=== PATIENT | female | born 1990 | race Caucasian/White ===

== ENCOUNTER 2022-02-09 06:12 | Observation (INO) | payer OTHER ==
[~2022-02-09] VITALS: Ht 175.3 cm; Wt 142.9 kg
[2022-02-09] MEDS ORDERED: PREN-96 PO (08:03)
== END 2022-02-09 10:35 | disposition home or self-care (01) ==
LOC: LDRP 06:12
PROVIDERS: ADMIT Obstetrics & Gynecology; ATTEND Obstetrics & Gynecology
DX: O36.8130 Decreased fetal movements, third trimester, not applicable or unspecified (principal); O26.893 Other specified pregnancy related conditions, third trimester; R10.9 Unspecified abdominal pain; Z3A.33 33 weeks gestation of pregnancy; Z87.891 Personal history of nicotine dependence; Z91.040 Latex allergy status
CPT/HCPCS: 59025; 76818; 81002; 94762; G0378

== ENCOUNTER 2022-03-14 08:52 | Observation (INO) | payer OTHER ==
[~2022-03-14 08:52] MED LIST: PREN-96 PO
[2022-03-14 10:13] LABS: Protein, Urine 7.7 mg/dL (0.0-11.9)
[2022-03-14 10:53] LABS: Basophils # (auto) 0.1 10 ^3/uL (0-0.2); Eosinophils # (auto) 0.2 10 ^3/uL (0-0.8)
[2022-03-14 10:57] LABS: Basophils % (auto) 0.8 % (0.0-2.0); Eosinophils % (auto) 1.4 % (0.0-7.0); Hematocrit 34.7 % (36.0-46.0); Hemoglobin 11.1 g/dL (12.2-16.2); Lymphocytes # (auto) 2.7 10 ^3/uL (0.4-5.4); Mean Corpuscular Hemoglobin 26.7 pg (28.0-32.0); Mean Corpuscular Volume 83.5 fL (80.0-100.0); Monocytes # (auto) 0.8 10 ^3/uL (0-1.3); Monocytes % (auto) 5.6 % (0.0-12.0); Neutrophils # (auto) 9.8 10 ^3/uL (1.6-8.6); Neutrophils % (auto) 72.2 % (37.0-80.0); Red Blood Cells 4.16 10^6/uL (4.0-5.20); Red Cell Distribution Width 13.5 % (11.8-14.3); White Blood Cell 13.6 10^3/uL (4.4-10.8)
[2022-03-14 11:12] LABS: Potassium 3.9 mmol/L (3.5-5.1)
[2022-03-14 11:18] LABS: Albumin 2.4 g/dL (3.4-5.0); Calcium 8.5 mg/dL (8.5-10.1)
[2022-03-14 11:22] LABS: Bilirubin, Total 0.4 mg/dL (0.2-1.0); Total Protein 6.7 g/dL (6.4-8.2)
[2022-03-14 11:23] LABS: INR 0.94 (0.9-1.15); Partial Thromboplastin Time 28.2 sec (24.6-33.4)
[2022-03-14 11:24] LABS: BUN/Creatinine Ratio 12.8
[2022-03-14 11:25] LABS: Uric Acid 4.3 mg/dL (2.6-6.0)
== END 2022-03-14 12:08 | disposition home or self-care (01) ==
LOC: LDRP 08:52 → UNDOADMOB 08:52 → LDRP 09:01
PROVIDERS: ADMIT Obstetrics & Gynecology; ATTEND Obstetrics & Gynecology
DX: O13.3 Gestational [pregnancy-induced] hypertension without significant proteinuria, third trimester (principal); Z3A.38 38 weeks gestation of pregnancy; Z87.891 Personal history of nicotine dependence; Z91.040 Latex allergy status
CPT/HCPCS: 36415; 59025; 76805; 80053; 81002; 82570; 84156; 84550; 85025; 85610; 85730; 94760; G0378

== ENCOUNTER 2022-03-16 07:56 | Observation (INO) | payer OTHER ==
[2022-03-16 09:21] LABS: Urine Bacteria FEW /hpf (None Seen); Urine Blood TRACE /uL (Negative); Urine Budding Yeast MODERATE /hpf (None Seen); Urine Specific Gravity 1.007 (1.001-1.035); Urine Sperm PRESENT /hpf (None Seen); Urine WBC 102 /hpf (0 - 5); Urine WBC Clumps PRESENT /hpf (None Seen)
[2022-03-16 09:33] LABS: Protein, Urine 8.5 mg/dL (0.0-11.9)
[2022-03-16 09:38] LABS: Protein, Urine 11.3 mg/dL (0.0-11.9)
== END 2022-03-16 11:14 | disposition home or self-care (01) ==
LOC: LDRP 07:56 → UNDOADMOB 07:56 → LDRP 08:12
PROVIDERS: ADMIT Obstetrics & Gynecology; ATTEND Obstetrics & Gynecology
DX: O13.3 Gestational [pregnancy-induced] hypertension without significant proteinuria, third trimester (principal); O62.9 Abnormality of forces of labor, unspecified; Z3A.38 38 weeks gestation of pregnancy
CPT/HCPCS: 59025; 76818; 81001; 82570; 84156; G0378

== ENCOUNTER 2022-03-20 07:35 | Observation (INO) | payer OTHER ==
[~2022-03-20] VITALS: Ht 180.3 cm; Wt 148.3 kg
== END 2022-03-20 16:08 | disposition home or self-care (01) ==
LOC: LDRP 13:58 → UNDOADMOB 14:37 → LDRP 14:37 → UNDODISOB 16:08
PROVIDERS: ADMIT Obstetrics & Gynecology; ATTEND Obstetrics & Gynecology
DX: O13.3 Gestational [pregnancy-induced] hypertension without significant proteinuria, third trimester (principal); Z3A.38 38 weeks gestation of pregnancy
CPT/HCPCS: 59025; 76818; 81002; 94760; G0378

== ENCOUNTER 2022-03-22 08:30 | Observation (INO) | payer OTHER ==
[~2022-03-22] VITALS: Ht 180.3 cm; Wt 148.3 kg
== END 2022-03-22 09:50 | disposition home or self-care (01) ==
LOC: LDRP 08:30
PROVIDERS: ADMIT Obstetrics & Gynecology; ATTEND Obstetrics & Gynecology
DX: O13.3 Gestational [pregnancy-induced] hypertension without significant proteinuria, third trimester (principal); O46.93 Antepartum hemorrhage, unspecified, third trimester; O62.9 Abnormality of forces of labor, unspecified; Z3A.39 39 weeks gestation of pregnancy
CPT/HCPCS: 59025; 81002; 94760; G0378

== ENCOUNTER 2022-03-23 07:50 | Inpatient (IN) | payer OTHER ==
[~2022-03-23] VITALS: Ht 30.5 cm; Wt 0.5 kg
[2022-03-23] MEDS ORDERED: PROMETHAZINE HCL 25 MG/ML 1ML IM PRN (08:30)
[2022-03-23] MEDS ORDERED: WITCH HAZEL-GLYCERIN PAD TOP PRN (08:30)
[2022-03-23] MEDS ORDERED: DERMOPLAST 60ML BOTTLE TOP PRN (08:30)
[2022-03-23] MEDS ORDERED: LIDOCAINE 2%HCL (LOCAL ANESTH.) INJ 10ml MDV IJ PRN (08:30)
[2022-03-23] MEDS ORDERED: PHISODERM TOP SOLN 240ML BTL TOP PRN (08:30)
[2022-03-23] MEDS ORDERED: BUTORPHANOL TARTRATE 2 MG/1 ML VIAL IV PRN ×2 (08:30)
[2022-03-23] MEDS ORDERED: LACT. RINGERS/OXYTOCIN 20UNITS 500 ML IV ONE ×2 (08:30→09:00)
[2022-03-23 09:11] LABS: Basophils # (auto) 0.1 10 ^3/uL (0-0.2); Basophils % (auto) 0.5 % (0.0-2.0); Eosinophils # (auto) 0.2 10 ^3/uL (0-0.8); Eosinophils % (auto) 1.3 % (0.0-7.0); Hematocrit 34.5 % (36.0-46.0); Hemoglobin 10.9 g/dL (12.2-16.2); Lymphocytes # (auto) 2.7 10 ^3/uL (0.4-5.4); Lymphocytes % (auto) 21.2 % (10.0-50.0); Mean Corpuscular Hemoglobin 26.2 pg (28.0-32.0); Mean Corpuscular Hgb Conc. 31.7 g/dL (32.0-36.0); Mean Corpuscular Volume 82.6 fL (80.0-100.0); Monocytes # (auto) 0.7 10 ^3/uL (0-1.3); Monocytes % (auto) 5.3 % (0.0-12.0); Neutrophils # (auto) 8.9 10 ^3/uL (1.6-8.6); Neutrophils % (auto) 71.7 % (37.0-80.0); Red Blood Cells 4.17 10^6/uL (4.0-5.20); Red Cell Distribution Width 13.9 % (11.8-14.3); White Blood Cell 12.5 10^3/uL (4.4-10.8)
[2022-03-23 09:19] LABS: Urine Bacteria NONE SEEN /hpf (None Seen); Urine Blood Negative /uL (Negative); Urine Mucus FEW (None Seen); Urine Specific Gravity 1.018 (1.001-1.035); Urine WBC 20 /hpf (0 - 5)
[2022-03-23 09:26] LABS: Albumin 2.4 g/dL (3.4-5.0); Calcium 8.3 mg/dL (8.5-10.1); Potassium 3.5 mmol/L (3.5-5.1)
[2022-03-23 09:29] LABS: Alcohol, Urine < 3.0 mg/dL (0-10); Amphetamine Screen, Urine NEGATIVE (NEGATIVE); Barbiturate Scree,Urine NEGATIVE (NEGATIVE); Benzodiazephine Screen, Urine NEGATIVE (NEGATIVE); Cannabinoid Screen, Urine NEGATIVE (NEGATIVE); Cocaine Screen, Urine NEGATIVE (NEGATIVE); Opiate Scree,Urine NEGATIVE (NEGATIVE); Phencyclidine Screen, Urine NEGATIVE (NEGATIVE)
[2022-03-23 09:30] LABS: BUN/Creatinine Ratio 8.9; Bilirubin, Total 0.3 mg/dL (0.2-1.0); INR 0.9 (0.9-1.15); Partial Thromboplastin Time 25.9 sec (24.6-33.4); Total Protein 6.7 g/dL (6.4-8.2)
[2022-03-23] MEDS: LACTATED RINGER'S 1,000 ML IV SCH ×3 (09:40→22:46)
[2022-03-23] MEDS: miSOPROStol 50 MCG per PRE-CUT 1/2 TAB PO PRN ×3 (11:04→19:36)
[2022-03-23] MEDS ORDERED: LIDOCAINE HCL 2 %PF INJ 10ML AMP IJ ONE (20:00)
[2022-03-23] MEDS ORDERED: fentaNYL CITRATE 100 MCG/2 ML VL IV ONE (20:00)
[2022-03-23] MEDS ORDERED: LACTATED RINGER'S 1,000 ML IV ONE (20:00)
[2022-03-23] MEDS ORDERED: NALOXONE HCL 0.4 MG/ML VIAL IV ONE (20:00)
[2022-03-23] MEDS ORDERED: ePHEDrine SULFATE 50 MG/ML AMP IV ONE (20:00)
[2022-03-23] MEDS: ROPIVACAINE HCL 200 ML EPI SCH (22:40)
[2022-03-24] MEDS ORDERED: NALOXONE HCL 0.4 MG/ML VIAL IV ONE (01:15)
[2022-03-24] MEDS ORDERED: ROPIVACAINE HCL 200 ML EPI SCH (01:15)
[2022-03-24] MEDS ORDERED: SODIUM CHLORIDE 0.9% 500 ML IV PRN (01:15)
[2022-03-24] MEDS ORDERED: ePHEDrine SULFATE 50 MG/ML AMP IV ONE (01:15)
[2022-03-24] MEDS ORDERED: ceFAZolin 1GM/50ML 50 ML IV ONE (02:35)
[2022-03-24 07:06] LABS: RPR Non Reactive (Non Reactive)
[2022-03-24] MEDS ORDERED: LACT. RINGERS/OXYTOCIN 20UNITS 1,000 ML IV SCH (07:45)
[2022-03-24] MEDS ORDERED: DOCU-94 PO (08:35)
[2022-03-24] MEDS ORDERED: HYDR-4902 PO (08:35)
[2022-03-24] MEDS ORDERED: ceFAZolin 1GM/50ML 50 ML IV SCH (10:30)
[2022-03-24] MEDS: ROPIVACAINE HCL 200 ML EPI SCH (12:14)
[2022-03-24] MEDS ORDERED: LIDOCAINE 2%HCL (LOCAL ANESTH.) INJ 20ML MDV ONE (14:16)
[2022-03-24] MEDS ORDERED: ACETAMINOPHEN 325 MG TAB PO PRN (17:45)
[2022-03-24] MEDS: IBUPROFEN 600 MG TAB PO PRN (18:17)
[2022-03-24 19:16] VITALS: BP 118/62
[2022-03-24] MEDS ORDERED: DOCUSATE SOD 100 MG CAP PO SCH (22:00)
[2022-03-24 23:00] VITALS: BP 135/73
[2022-03-25] MEDS: IBUPROFEN 600 MG TAB PO PRN (02:54)
[2022-03-25 02:56] VITALS: BP 132/70
[2022-03-25 07:00] VITALS: BP 125/79
[2022-03-25 11:00] VITALS: BP 120/72
== END 2022-03-25 17:15 | disposition home or self-care (01) | DRG 807 ==
LOC: LDRP 07:50
PROVIDERS: ADMIT Obstetrics & Gynecology; ATTEND Obstetrics & Gynecology
PROC: 3E0P7VZ Introduction of Hormone into Female Reproductive, Via Natural or Artificial Opening (ICD-10-PCS; 2022-03-23)
PROC: 3E0R3BZ Introduction of Anesthetic Agent into Spinal Canal, Percutaneous Approach (ICD-10-PCS; 2022-03-23)
PROC: 00HU33Z Insertion of Infusion Device into Spinal Canal, Percutaneous Approach (ICD-10-PCS; 2022-03-23)
PROC: 10E0XZZ Delivery of Products of Conception, External Approach (ICD-10-PCS; principal; 2022-03-24)
PROC: 0KQM0ZZ Repair Perineum Muscle, Open Approach (ICD-10-PCS; 2022-03-24)
PROC: 10H07YZ Insertion of Other Device into Products of Conception, Via Natural or Artificial Opening (ICD-10-PCS; 2022-03-24)
DX: O13.4 Gestational [pregnancy-induced] hypertension without significant proteinuria, complicating childbirth (principal); Z37.0 Single live birth; Z3A.39 39 weeks gestation of pregnancy; Z20.822 Contact with and (suspected) exposure to COVID-19; O14.94 Unspecified pre-eclampsia, complicating childbirth; O70.1 Second degree perineal laceration during delivery
CPT/HCPCS: 36415; 59025; 59409; 62282; 80053; 80307; 81001; 81002; 84112; 85025; 85610; 85730; 86592; 86850; 86900; 86901; 94760; 94762; 96360; 96361; 96365; 96366; G0378; J0690; J2590